=== PATIENT | female | born 1940 | race Caucasian/White ===

== ENCOUNTER → 2021-03-07 | Outpatient (CLI) | payer MEDICARE ==
--- NOTE | 2021-03-07 16:00 | RAD ---
INDICATION: Screening for osteopenia/osteoporosis. Postmenopausal evaluation. COMPARISON: None. TECHNIQUE: Bone densitometry was performed through the lumbar spine and proximal femur. IMPRESSION: Lumbar Spine: BMD: 1.05 T-Score: -1.1 Range: Osteopenic Proximal Femur: BMD: 0.57 T-Score: -3.1 Range: Osteoporotic World Health Organization Criteria for Bone Density: T-Score: > -1.0: Normal Range < -1.0 to -2.5: Osteopenic Range < -2.5: Osteoporotic Range Electronically signed by: Jack Alexandre MD (03/07/2021 3:58 PM) [id number]
== END ==
LOC: DXRAD 14:12
PROVIDERS: ATTEND Family Medicine
DX: M81.0 Age-related osteoporosis without current pathological fracture (principal); M85.88 Other specified disorders of bone density and structure, other site; Z78.0 Asymptomatic menopausal state
CPT/HCPCS: 77080

== ENCOUNTER → 2021-04-28 | Outpatient (CLI) | payer MEDICARE ==
--- NOTE | 2021-04-28 12:32 | RAD ---
EXAM: 3 views of the right ankle DATE: 04/28/2021 12:00 PM INDICATION: Reason: RIGHT ANKLE PAIN AFTER STEPPING WRONG / Spl. Instructions: / History: COMPARISON: No Prior FINDINGS: No evidence of acute fracture or dislocation. Ankle mortise is congruent. Talar dome is intact. 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 Soft tissue swel ling at the plantar aspect of the calcaneus. Atherosclerotic vascular calcifications are seen. IMPRESSION: 1. No acute fracture or dislocation. 2. 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 3. Vascular calcifications are seen. Electronically signed by: Allan Cordon MD (04/28/2021 12:30 PM) [id number]
== END ==
LOC: RAD 11:44
PROVIDERS: ATTEND Family Medicine
DX: M25.871 Other specified joint disorders, right ankle and foot (principal); M79.89 Other specified soft tissue disorders
CPT/HCPCS: 73610